=== PATIENT | male | born 1975 ===

== ENCOUNTER 2022-09-21 14:01 | Inpatient (IN) | payer OTHER, SELFPAY ==
[2022-09-21 14:05] VITALS: BP 137/87; PULSE 83; RESP 16; TEMP 36.6; O2SAT 97; BMI 27.6
--- NOTE | 2022-09-21 14:06 | ECG_ITS ---
Test Reason : PAIN Blood Pressure : / mmHG Vent. Rate : 066 BPM Atrial Rate : 066 BPM P-R Int : 146 ms QRS Dur : 092 ms QT Int : 434 ms P-R-T Axes : 050 047 028 degrees QTc Int : 454 ms Normal sinus rhythm Normal ECG No previous ECGs available Referred By: Andrew Mccall Electronically Signed By:José Miguel Butler
--- NOTE | 2022-09-21 14:08 | ED.GENADULT ---
HPI - General Adult General Chief complaint: Skin/Abscess/Foreign Body Stated complaint: OD Time Seen by Provider: 09/21/22 14:20 Related Data Allergies Allergy/AdvReac Type Severity Reaction Status Date / Time No Known Allergies Allergy Verified 09/21/22 14:05 [facility] Social History Social History Advance Directives: No Physical Exam ED Vital Signs: Vital Signs - 24 hr 09/21/22 14:05 Temperature 98 F Pulse Rate 83 Respiratory Rate 16 Blood Pressure 137/87 Pulse Oximetry 97 Oxygen Delivery Method Room Air BMI result Body Mass Index 27.6 Course Course Course Narrative: 47-year-old male presents for evaluation of ?I got pulled over by the police, so I swallowed 15 bags of heroin. ? This happened 15 minutes prior to arrival. The patient is anxious currently but has no other complaints. 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 Medications Administered Discontinued Medications Generic Name Dose Route Start Last Admin Trade Name Freq PRN Reason Stop Dose Admin Heparin Sodium (Porcine) 5,000 unit 09/21/22 17:00 09/21/22 17:47 Heparin Sodium,Porcine 5,000 Unit/Ml Vial SUBCUT 5,000 unit Q8H ROSETTE Administration Sodium Chloride 1,000 mls @ 999 mls/hr 09/21/22 14:45 09/21/22 14:53 Ns IV 09/21/22 15:45 999 mls/hr .Q1H1M ROSETTE Administration Naloxone HCl 1 mg 09/21/22 14:35 09/21/22 14:51 Naloxone Hcl 2 Mg/2 Ml Syringe IVPUSH 09/21/22 14:36 1 mg ONCE ONE Administration Polyethylene Glycol/Electrolytes 4,000 ml 09/21/22 14:45 09/21/22 15:26 Peg 3350/Na Sulf,Bicarb,Cl/Kcl 4,000 Ml Soln.Recon PO 09/21/22 14:46 4,000 ml ONCE ONE Administration Medical Decision Making Lab Data 09/21/22 14:21 09/21/22 14:21 Labs: Lab Results 09/21/22 09/21/22 09/21/22 Range/Units 14:21 15:52 16:01 WBC 10.2 (4.8-10.8) X10*3/uL RBC 4.97 (4.60-5.80) X10*6/uL Hgb 14.6 (14.0-18.0) g/dl Hct 42.8 (42.0-52.0) % MCV 86.1 (80.0-98.0) fL MCH 29.4 (27.0-33.0) pg MCHC 34.1 (31.0-36.0) g/dl RDW 13.2 (11.0-16.0) % Plt Count 197 (160-400) X10*3/uL MPV 10.1 (9.4-12.4) fL Immature Gran % (Auto) 0.3 (0.0-0.4) % Neut % (Auto) 58.3 (45-73) % Lymph % (Auto) 26.5 (20-40) % [place] % (Auto) 5.9 (2-11) % Eos % (Auto) 8.3 H (0-4) % Baso % (Auto) 0.7 (0-2) % Lymph # (Auto) 2.7 (1.2-4.9) X10*3/uL [place] # (Auto) 0.6 (0.1-1.2) X10*3/uL Eos # (Auto) 0.9 H (0.0-0.4) X10*3/uL Baso # (Auto) 0.1 (0.0-0.2) X10*3/uL Abs Immat Gran (auto) 0.03 (0.00-0.03) X10*3/uL Absolute Neuts (auto) 5.9 (2.0-8.3) x10*3/uL Absolute Nucleated RBC 0.000 (0.0-0.012) X10*3/uL Nucleated RBC % (auto) 0.0 (0.0-0.2) /100WBC Sodium 136 (135-145) mmol/L Potassium 3.4 (3.3-5.1) mmol/L Chloride 101 (96-108) mmol/L Carbon Dioxide 28 (22-29) mmol/L Anion Gap 10 L (12-20) BUN 15 (9-16) mg/dL Creatinine 0.81 (0.5-1.4) mg/dL Estim Creat Clear Calc 115.1 Estimated GFR > 60 Random Glucose 107 (60-115) mg/dL Calcium 9.3 (8.4-10.2) mg/dL Total Bilirubin 0.9 (0.0-1.0) mg/dL AST 16 (5-37) U/L ALT 13 (0-40) U/L Alkaline Phosphatase 71 (39-117) U/L Total Protein 6.5 (6.5-8.0) g/dL Albumin 4.0 (3.5-5.0) g/dL Lipase 11 (8-78) U/L Salicylates < 5.0 L (15-30) mg/dL Urine Opiates Screen POSITIVE H (Not Detect) Urine Fentanyl Screen POSITIVE H (Not Detect) Acetaminophen < 17 (<30) mcg/mL Ur Barbiturates Screen Not Detected (Not Detect) Ur Phencyclidine Scrn Not Detected (Not Detect) Ur Amphetamines Screen Not Detected (Not Detect) U Benzodiazepines Scrn Not Detected (Not Detect) Urine Cocaine Screen POSITIVE H (Not Detect) U Marijuana (THC) Screen POSITIVE H (Not Detect) Ethyl Alcohol < 10 mg/dL Discharge Plan Discharge Clinical Impression: Intentional heroin overdose Patient Disposition: Left Against Medical Advice Interventions: ED Discharge Assessment Last Done: 09/21/22 19:42 Discharge Date/Time: 09/21/22 19:43
[2022-09-21 14:29] LABS: MANUAL DIFF FLAG NO
--- NOTE | 2022-09-21 14:30 | ED.OVERDOSE ---
HPI - Overdose General Chief Complaint: Skin/Abscess/Foreign Body Stated Complaint: OD Time Seen by Provider: 09/21/22 14:20 Related Data Allergies Allergy/AdvReac Type Severity Reaction Status Date / Time No Known Allergies Allergy Verified 09/21/22 14:05 [facility] Social History Social History Advance Directives: No Physical Exam Vital Signs: Vital Signs: Last Vital Signs Temp 98 F 09/21/22 16:06 Pulse 60 09/21/22 16:06 Resp 13 09/21/22 16:06 BP 128/75 09/21/22 16:06 Pulse Ox 94 09/21/22 16:06 O2 Del Method Room Air 09/21/22 16:06 BMI result Body Mass Index 27.6 Course Course Course Narrative: [id number] Pizarro covering the ICU who agreed with admission Reevaluation(s) Reevaluation #1: I was called to the bedside after 1 mg of narcan. Patient started to hyperventilate vomited yawning and became briefly tachycardic which resolved with some time and zofran. Medications Administered Discontinued Medications Generic Name Dose Route Start Last Admin Trade Name Elianq PRN Reason Stop Dose Admin Sodium Chloride 1,000 mls @ 999 mls/hr 09/21/22 14:45 09/21/22 14:53 Ns IV 09/21/22 15:45 999 mls/hr .Q1H1M ROSETTE Administration Naloxone HCl 1 mg 09/21/22 14:35 09/21/22 14:51 Naloxone Hcl 2 Mg/2 Ml Syringe IVPUSH 09/21/22 14:36 1 mg ONCE ONE Administration Polyethylene Glycol/Electrolytes 4,000 ml 09/21/22 14:45 09/21/22 15:26 Peg 3350/Na Sulf,Bicarb,Cl/Kcl 4,000 Ml Soln.Recon PO 09/21/22 14:46 4,000 ml ONCE ONE Administration Medical Decision Making Medical Decision Making MDM Narrative: I will call poison control about the body packing. He took 15 wax bags that are folded. He usually uses 3 bags at a time. He is currently sleepy but protecting his airway somnolent but arousable. I spoke poison control who felt the patient needed complete stroke workup. He would need monitoring until all the bags pass. I will try some narcan and golytely as well. Differential Diagnosis Differential Diagnoses: The differential diagnosis associated with the presentation includes Overdose the bags he states are narcan but could be amphetamines or cocaine. 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 Lab Data MDM Lab Attestation statement: I reviewed the patient's lab results. 09/21/22 14:21 09/21/22 14:21 Labs: Lab Results 09/21/22 09/21/22 09/21/22 Range/Units 14:21 14:21 15:52 WBC 10.2 (4.8-10.8) X10*3/uL RBC 4.97 (4.60-5.80) X10*6/uL Hgb 14.6 (14.0-18.0) g/dl Hct 42.8 (42.0-52.0) % MCV 86.1 (80.0-98.0) fL MCH 29.4 (27.0-33.0) pg MCHC 34.1 (31.0-36.0) g/dl RDW 13.2 (11.0-16.0) % Plt Count 197 (160-400) X10*3/uL MPV 10.1 (9.4-12.4) fL Immature Gran % (Auto) 0.3 (0.0-0.4) % Neut % (Auto) 58.3 (45-73) % Lymph % (Auto) 26.5 (20-40) % [place] % (Auto) 5.9 (2-11) % Eos % (Auto) 8.3 H (0-4) % Baso % (Auto) 0.7 (0-2) % Lymph # (Auto) 2.7 (1.2-4.9) X10*3/uL [place] # (Auto) 0.6 (0.1-1.2) X10*3/uL Eos # (Auto) 0.9 H (0.0-0.4) X10*3/uL Baso # (Auto) 0.1 (0.0-0.2) X10*3/uL Abs Immat Gran (auto) 0.03 (0.00-0.03) X10*3/uL Absolute Neuts (auto) 5.9 (2.0-8.3) x10*3/uL Absolute Nucleated RBC 0.000 (0.0-0.012) X10*3/uL Nucleated RBC % (auto) 0.0 (0.0-0.2) /100WBC Sodium 136 (135-145) mmol/L Potassium 3.4 (3.3-5.1) mmol/L Chloride 101 (96-108) mmol/L Carbon Dioxide 28 (22-29) mmol/L Anion Gap 10 L (12-20) BUN 15 (9-16) mg/dL Creatinine 0.81 (0.5-1.4) mg/dL Estim Creat Clear Calc 115.1 Estimated GFR > 60 Random Glucose 107 (60-115) mg/dL Calcium 9.3 (8.4-10.2) mg/dL Total Bilirubin 0.9 (0.0-1.0) mg/dL AST 16 (5-37) U/L ALT 13 (0-40) U/L Alkaline Phosphatase 71 (39-117) U/L Total Protein 6.5 (6.5-8.0) g/dL Albumin 4.0 (3.5-5.0) g/dL Lipase 11 (8-78) U/L Salicylates < 5.0 L (15-30) mg/dL Urine Opiates Screen (Not Detect) Urine Fentanyl Screen (Not Detect) Acetaminophen < 17 (<30) mcg/mL Ur Barbiturates Screen (Not Detect) Ur Phencyclidine Scrn (Not Detect) Ur Amphetamines Screen (Not Detect) U Benzodiazepines Scrn (Not Detect) Urine Cocaine Screen (Not Detect) U Marijuana (THC) Screen (Not Detect) Ethyl Alcohol < 10 mg/dL 09/21/22 Range/Units 16:01 WBC (4.8-10.8) X10*3/uL RBC (4.60-5.80) X10*6/uL Hgb (14.0-18.0) g/dl Hct (42.0-52.0) % MCV (80.0-98.0) fL MCH (27.0-33.0) pg MCHC (31.0-36.0) g/dl RDW (11.0-16.0) % Plt Count (160-400) X10*3/uL MPV (9.4-12.4) fL Immature Gran % (Auto) (0.0-0.4) % Neut % (Auto) (45-73) % Lymph % (Auto) (20-40) % [place] % (Auto) (2-11) % Eos % (Auto) (0-4) % Baso % (Auto) (0-2) % Lymph # (Auto) (1.2-4.9) X10*3/uL [place] # (Auto) (0.1-1.2) X10*3/uL Eos # (Auto) (0.0-0.4) X10*3/uL Baso # (Auto) (0.0-0.2) X10*3/uL Abs Immat Gran (auto) (0.00-0.03) X10*3/uL Absolute Neuts (auto) (2.0-8.3) x10*3/uL Absolute Nucleated RBC (0.0-0.012) X10*3/uL Nucleated RBC % (auto) (0.0-0.2) /100WBC Sodium (135-145) mmol/L Potassium (3.3-5.1) mmol/L Chloride (96-108) mmol/L Carbon Dioxide (22-29) mmol/L Anion Gap (12-20) BUN (9-16) mg/dL Creatinine (0.5-1.4) mg/dL Estim Creat Clear Calc Estimated GFR Random Glucose (60-115) mg/dL Calcium (8.4-10.2) mg/dL Total Bilirubin (0.0-1.0) mg/dL AST (5-37) U/L ALT (0-40) U/L Alkaline Phosphatase (39-117) U/L Total Protein (6.5-8.0) g/dL Albumin (3.5-5.0) g/dL Lipase (8-78) U/L Salicylates (15-30) mg/dL Urine Opiates Screen POSITIVE H (Not Detect) Urine Fentanyl Screen POSITIVE H (Not Detect) Acetaminophen (<30) mcg/mL Ur Barbiturates Screen Not Detected (Not Detect) Ur Phencyclidine Scrn Not Detected (Not Detect) Ur Amphetamines Screen Not Detected (Not Detect) U Benzodiazepines Scrn Not Detected (Not Detect) Urine Cocaine Screen POSITIVE H (Not Detect) U Marijuana (THC) Screen POSITIVE H (Not Detect) Ethyl Alcohol mg/dL Independent Interpretation I performed an independent interpretation of an: EKG Radiology Impression Discussion of test interpretation with radiology: I have reviewed the radiologist's reading. Critical Care Time Critical Care Time Critical Care Time: Yes Total Critical Care Time: 55 Attestation: Patient came with police for body packing some heroin. I was with the patient for the first 15 minutes while they established IV and gave some narcan. Had a bad reaction requireing revaluation. consult with poison control and consult with ICU. Discharge Plan Discharge Clinical Impression: Intentional heroin overdose Patient Disposition: Admitted As Inpatient
[2022-09-21 14:31] LABS: Basophils Absolute Auto 0.1 X10*3/uL (0.0-0.2); Basophils Percent Auto 0.7 % (0-2); Eosinophils Absolute Auto 0.9 X10*3/uL (0.0-0.4); Eosinophils Percent Auto 8.3 % (0-4); Hematocrit 42.8 % (42.0-52.0); Hemoglobin 14.6 g/dl (14.0-18.0); Imm Gran Abs Auto 0.03 X10*3/uL (0.00-0.03); Imm Gran Pct Auto 0.3 % (0.0-0.4); Lymphocytes Absolute Auto 2.7 X10*3/uL (1.2-4.9); Lymphocytes Percent Auto 26.5 % (20-40); Mean Corpuscular HGB Conc 34.1 g/dl (31.0-36.0); Mean Corpuscular Hemoglobin 29.4 pg (27.0-33.0); Mean Corpuscular Volume 86.1 fL (80.0-98.0); Mean Platelet Volume 10.1 fL (9.4-12.4); Monocytes Absolute Auto 0.6 X10*3/uL (0.1-1.2); Monocytes Percent Auto 5.9 % (2-11); Neutrophils Absolute Auto 5.9 x10*3/uL (2.0-8.3); Neutrophils Percent Auto 58.3 % (45-73); Platelet Count 197 X10*3/uL (160-400); Red Blood Count 4.97 X10*6/uL (4.60-5.80); Red Cell Distribution Width 13.2 % (11.0-16.0); White Blood Count 10.2 X10*3/uL (4.8-10.8)
[2022-09-21] MEDS: Naloxone HCl 2 MG/2 ML SYRINGE 1 MG IVPUSH (14:51)
[2022-09-21 14:53] LABS: Acetaminophen LAB < 17 mcg/mL (<30); Alanine Aminotransferase 13 U/L (0-40); Alkaline Phosphatase 71 U/L (39-117); Anion Gap 10 (12-20); Aspartate Amino Transferase 16 U/L (5-37); Bilirubin Total 0.9 mg/dL (0.0-1.0); Blood Urea Nitrogen 15 mg/dL (9-16); Calcium 9.3 mg/dL (8.4-10.2); Carbon Dioxide 28 mmol/L (22-29); Chloride 101 mmol/L (96-108); Creatinine Clr Calc Pharmacy 115.1; Estimated Glomerular Filt Rate > 60; Glucose Random 107 mg/dL (60-115); Lipase 11 U/L (8-78); Potassium 3.4 mmol/L (3.3-5.1); Salicylate < 5.0 mg/dL (15-30); Sodium 136 mmol/L (135-145); Total Protein 6.5 g/dL (6.5-8.0)
[2022-09-21] MEDS: 0.9 % Sodium Chloride 1,000 ML 999 ML IV (14:53)
[2022-09-21] MEDS: PEG 3350/Na Sulf,Bicarb,Cl/KCL 4,000 ML SOLN.RECON 4000 ML PO (15:26)
[2022-09-21 15:40] VITALS: BP 126/68; PULSE 79; RESP 9; TEMP 36.6; O2SAT 98
[2022-09-21 16:06] VITALS: BP 128/75; PULSE 60; RESP 13; TEMP 36.6; O2SAT 94
[2022-09-21 16:20] LABS: Amphetamine Screen Urine Not Detected (Not Detect); Barbiturates, Urine Not Detected (Not Detect); Benzodiazepines Screen Urine Not Detected (Not Detect); Cannabinoid Screen Urine POSITIVE (Not Detect); Cocaine Screen Urine POSITIVE (Not Detect); Fentanyl, urine POSITIVE (Not Detect); Opiate Screen Urine POSITIVE (Not Detect); Phencyclidine Screen Urine Not Detected (Not Detect)
[2022-09-21 16:28] LABS: Ethanol < 10 mg/dL
--- NOTE | 2022-09-21 17:23 | MHC.EDTECH ---
around 15:40 pt was assisted with urinal. pt void 700ml of dark yellow urine. At 1715 pt used urinal and voids 750ml of clear yellow urine. Tw continues offering liquids.
[2022-09-21] MEDS: Heparin Sodium,Porcine 5,000 UNIT/ML VIAL 5000 UNIT SUBCUT (17:47)
[2022-09-21 18:42] VITALS: BP 132/79; PULSE 79; RESP 13; TEMP 36.1; O2SAT 98
--- NOTE | 2022-09-21 18:43 | MHC.EDTECH ---
Pt used commode for BM, liquid feces were noted by tw.
--- NOTE | 2022-09-21 19:00 | MHC.EDTECH ---
At 18:45 pt went to the bathroom, pt stated that he had a BM, saw the bags and flushed it. Pt asking to leave. RN aware. Provider notified.
--- NOTE | 2022-09-21 19:08 | PC.NURSE ---
This RN came in and took over at 1900 - MD Goodwin walking out of pt room stating patient is signing out AMA . Nursing lathing supervisor notified.
[2022-09-21 19:33] VITALS: BP 126/79; PULSE 64; RESP 12; O2SAT 96
--- NOTE | 2022-09-21 19:40 | PC.NURSE ---
Pt signed AMA form, understands the risks of leaving against medical advice. pt instructed to stop using drugs and that this could have been extremely life threatening. pt ambulating with steady gait, maintaining airway, speaking clear full sentences, and vital sins sable at time of discharge. 2 RN witnesses, educated pt on risks of leaving as well . MD Goodwin discharging patient AMA.
== END 2022-09-21 20:15 | disposition left against medical advice (07) | DRG 816 ==
LOC: HO.ED 17:02 → HO.EDOVER 17:06 → HO.ICU 19:01 → HO.EDOVER 19:16
PROVIDERS: Physician Assistant; Admitting Provider Internal Medicine Pulmonary Disease; Emergency Provider Student in an Organized Health Care Education/Training Program; Visit Provider Internal Medicine Pulmonary Disease
DX: T40.1X1A Poisoning by heroin, accidental (unintentional), initial encounter (principal); R40.0 Somnolence
CPT/HCPCS: 36415; 80053; 80143; 80179; 80307; 83690; 85025; 93005; 99221; 99284; J1643